=== PATIENT | male | born 1955 | race African-American/Black ===

== ENCOUNTER 2017-05-13 06:17 | Emergency (ER) | payer MEDICAID ==
[~2017-05-13] VITALS: Ht 175.3 cm; Wt 80.7 kg
[~2017-05-13 06:17] MED LIST: CIPR500T87 PO; DOCU100T PO; MAGN400T26 PO; SENN-109 PO
[2017-05-13 06:18] VITALS: BP 132/87
[2017-05-13] MEDS ORDERED: albuterol mdi (06:32)
[2017-05-13 07:07] LABS: HEMATOCRIT 42.2 % (39.2-51.8); HEMOGLOBIN 14.2 g/dL (13.7-18.0); WHITE BLOOD COUNT 7.5 x10^3/uL (3.4-10)
[2017-05-13 07:20] LABS: ASPARTATE AMINO TRANSFERASE 11 U/L (15-37); BLOOD UREA NITROGEN 13 mg/dL (7-18)
[2017-05-13 07:48] LABS: IS PT STATUS REG ER OR PRE ER? YES
== END 2017-05-13 09:50 | disposition home or self-care (01) ==
LOC: ED 07:08
DX: J20.9 Acute bronchitis, unspecified (principal); J44.9 Chronic obstructive pulmonary disease, unspecified
CPT/HCPCS: 36415; 71010; 80053; 83605; 84484; 85025; 87040; 93005; 99285

== ENCOUNTER 2019-11-24 10:50 | Emergency (ER) | payer MEDICARE ==
[~2019-11-24] VITALS: Ht 175.3 cm; Wt 80.0 kg
[~2019-11-24 10:50] MED LIST changes: -SENN-109 PO; +SENN-99 PO; +albuterol mdi
[2019-11-24 10:52] VITALS: BP 125/76
--- NOTE | 2019-11-24 11:41 | NUR ---
assumed care for d/c only Patient/Caregiver given discharge instructions and they have confirmed that they understand the instructions. Patient ambulatory with steady gait.
== END 2019-11-24 11:44 | disposition home or self-care (01) ==
LOC: ED 11:38
DX: J44.9 Chronic obstructive pulmonary disease, unspecified (principal); F17.200 Nicotine dependence, unspecified, uncomplicated
CPT/HCPCS: 99283